=== PATIENT | male | born 1945 | race American Indian/Alaskan Native ===

== ENCOUNTER 2018-01-17 11:59 | Day surgery (SDC) | payer OTHER ==
[2018-01-10 10:07] VITALS: BMI 31.6
[2018-01-17] MEDS ORDERED: ceFAZolin IV 1 gm in Dextrose 2 GM/100 ML BAG IVPB ONE (14:48)
[2018-01-17] MEDS ORDERED: Propofol 10 mg/ml Inj (20 ML) ONE ×2 (14:49→17:44)
[2018-01-17] MEDS ORDERED: Midazolam 2 MG/2 ML VIAL ONE (14:49)
[2018-01-17] MEDS ORDERED: Bupivacaine 0.25% 20 ML INJ IJ ONE ×3 (14:49→16:25)
[2018-01-17] MEDS ORDERED: Lidocaine/Epinephrine 1% 1:100000 10 ML IJ ONE (14:49)
[2018-01-17] MEDS ORDERED: Rocuronium 10 mg/ml (5 ml) ONE ×2 (14:51→16:19)
[2018-01-17] MEDS ORDERED: Neostigmine Methylsulfate 3mg/3ml Syringe IV ONE (16:04)
--- NOTE | 2018-01-17 18:06 | PCM.SURG1 ---
Surgeon's Initial Post Op Note - Surgeon's Notes Surgeon: Gena Doll MD Information Assurance Analyst: KRISTOPHER Avalos Type of Anesthesia: General Endo Pre-Operative Diagnosis: B/L inguinal hernia. Morbid obesity. B/L small hydrocele Operative Findings: B/L Indirect inguinal hernia. Lipoma of left spermatic cord. Morbid obesity. B/L small hydrocele Post-Operative Diagnosis: B/L Indirect inguinal hernia. Lipoma of left spermatic cord. Morbid obesity. B/L small hydrocele Operation Performed: Robotic B/L Indirect inguinal hernia repair with mesh. Robotic excision of Lipoma of left spermatic cord. Lap B/L TAP block placement Specimen/Specimens Removed: Lipoma of left spermatic cord Estimated Blood Loss: EBL {In ML}: 10 Blood Products Given: N/A Drains Used: No Drains Post-Op Condition: Good Date of Surgery/Procedure: 01/17/18 Time of Surgery/Procedure: 18:06
[2018-01-17] MEDS: HYDROmorphone 0.5 mg/0.5 ml ISec IVP PRN ×3 (18:35→19:03)
[2018-01-17 21:28] VITALS: O2SAT 100
[2018-01-17 21:41] VITALS: BP 150/76; PULSE 73; RESP 16; TEMP 98.1
--- NOTE | 2018-01-18 06:03 | OP ---
PROCEDURE DATE: 01/17/2018 PREOPERATIVE DIAGNOSES: 1. Bilateral inguinal hernias. 2. Morbid obesity. 3. Small bilateral hydroceles. POSTOPERATIVE DIAGNOSES: 1. Bilateral inguinal hernias, the right is bigger than the left. 2. Lipoma of the left spermatic cord. 3. Morbid obesity. PROCEDURES DONE: 1. Robotic right inguinal hernia repair with a mesh. 2. Robotic left inguinal hernia repair with a mesh. 3. Robotic excision of lipoma of the left spermatic cord. 4. Laparoscopic bilateral transverse abdominis plane block placement. SURGEON: Santos Doll MD ANESTHESIA: General endotracheal tube anesthesia. ESTIMATED BLOOD LOSS: Around 10 mL. PATHOLOGY: Lipoma of the cord was sent for the pathology. COMPLICATIONS: None. INTRAOPERATIVE FINDINGS: The patient had a large right inguinal hernia containing large amount of small intestine. The patient had a very small left inguinal hernia and also had a lipoma of the cord on the left side. DESCRIPTION OF PROCEDURE: On intraoperative steps, this is a 72-year-old male who was diagnosed with bilateral inguinal hernias. The patient was consented for robotic bilateral inguinal hernia repair with a mesh. Brought to the OR, placed supine on the operating table. After induction of the anesthesia, the abdomen was prepped and draped in the usual sterile fashion. A supraumbilical transverse incision was made after incising the skin, subcutaneous tissue, and the fascia. The robotic camera port was placed and pneumo was created. Another 3 x 8 mm port was placed in the upper abdomen. Robot was brought in. Camera arm as well as arm 1 and arm 2 were docked. There was incarcerated small bowel that was reduced back into the peritoneal cavity. Dissection of the peritoneum was done from the right ASIS up to the left ASIS. Medially, the dissection was carried down up to the space of Retzius. The lateral abdominal wall was from the peritoneum. The vas deferens and spermatic cord vessel was also identified, and it was dissected. Hernial sac was partially reduced, and it was divided distally after dissecting free from the vas deferens and spermatic cord vessel. The peritoneum was dissected inferiorly up to the pelvic brim. Now, the similar dissection was done on the left side, and the peritoneum was dissected free from the left lateral abdominal wall. The spermatic cord vessel and vas deferens was also dissected. Large lipoma of the spermatic cord was excised, and it was sent off the table for the pathology. Now, bilateral meshes were placed, first right and then on the left side. After proper implantation of the mesh, peritoneum was sutured with 2-0 Vicryl as well as 3-0 PDS continuous sutures. After that, there was a small rent inside the peritoneum that was also picked with a 2-0 Vicryl. Now, all instruments were taken out. The robot was undocked. The procedure was converted to laparoscopy. Bilateral TAP block was given. Left and right side 30:30 mL of Marcaine was injected into the transverse abdominal muscle plane block. After proper TAP block, all the ports were taken out. Pneumo was deflated. Umbilical port site was closed in two layers, the fascia with 0 Vicryl interrupted suture and skin with a 4-0 Monocryl. A dry sterile dressing was applied. The patient tolerated the procedure well. Count of the instruments and gauze was correct. There was no apparent complication. The patient was extubated in OR, sent to the postanesthesia care in stable condition. Santos Doll MD
[2018-01-18] MEDS ORDERED: Ipratropium 0.02% Inhal Soln (0.5 mg/2.5 ml) UD IH ONE ×2 (08:30→08:50)
[2018-01-18] MEDS ORDERED: Albuterol-Ipratrop 3 mg / 0.5 (3 ml) UD ONE ×2 (08:56→09:00)
== END 2018-01-17 20:45 | disposition home or self-care (01) ==
LOC: EDBD → C.SDS 11:59
PROVIDERS: ATTEND Surgery Surgical Critical Care
DX: K40.20 Bilateral inguinal hernia, without obstruction or gangrene, not specified as recurrent (principal); E66.01 Morbid (severe) obesity due to excess calories; D17.6 Benign lipomatous neoplasm of spermatic cord
CPT/HCPCS: 49650; 55520; 88304; C1781; J0690; J1170; J2250; J2405; J2704; J2710; J3010